=== PATIENT | male | born 1950 | race Two or more races ===

== ENCOUNTER 2020-02-24 00:57 | Emergency (ER) | payer MEDICARE, MEDICAID ==
[~2020-02-24] VITALS: Ht 170.2 cm; Wt 68.2 kg
[2020-02-24 04:17] VITALS: BP 133/67
[2020-02-24] MEDS ORDERED: IBUPROFEN 800 MG TABLET PO ONE (04:45)
== END 2020-02-24 05:02 | disposition home or self-care (01) ==
LOC: EMS 00:57
DX: G89.21 Chronic pain due to trauma (principal); R60.0 Localized edema; Z59.0 Homelessness

== ENCOUNTER 2020-07-08 13:42 | Emergency (ER) | payer MEDICARE, MEDICAID ==
[~2020-07-08] VITALS: Ht 162.6 cm; Wt 61.4 kg
[2020-07-08 15:31] LABS: GLUCOSE,POINT OF CARE 62 MG/DL (70-110)
[2020-07-08 16:19] LABS: GLUCOSE,POINT OF CARE 140 MG/DL (70-110)
[2020-07-08 16:33] LABS: BASOPHILS % (AUTO) 0.8 % (0.0-2.0); EOSINOPHILS % (AUTO) 0.5 % (1.0-6.0); HEMATOCRIT 28.1 % (41-53); HEMOGLOBIN 9.2 g/dL (13.5-17.5); LYMPHOCYTES # (AUTO) 0.9 K/uL (1.0-4.8); LYMPHOCYTES % (AUTO) 15.2 % (22.0-44.0); MEAN CORPUSCULAR HEMOGLOBIN 26.2 pg (26.0-34.0); MEAN CORPUSCULAR HGB CONC 32.7 G/dL (31.0-37.0); MEAN CORPUSCULAR VOLUME 80 fL (80-100); MONOCYTES # (AUTO) 0.4 K/uL (0.1-1.0); NEUTROPHILS # (AUTO) 4.2 K/uL (1.8-7.7); NEUTROPHILS % (AUTO) 75.5 % (40.0-70.0); PLATELET COUNT (AUTO) 372 K/uL (150-450); RED BLOOD CELL COUNT(AUTO) 3.51 MIL/uL (4.50-5.90); RED CELL DISTRIBUTION WIDTH 17.1 % (11.5-14.5)
[2020-07-08 16:41] LABS: ANION GAP 9 mmol/L (8-16); CALCIUM, TOTAL 8.4 mg/dL (8.8-10.5); CARBON DIOXIDE 25 mmol/L (22-29); CHLORIDE 109 mmol/L (98-107); CREATININE 0.62 mg/dL (0.60-1.30); GLOMERULAR FILTR. RATE CALC > 60 mL/min (>60); GLUCOSE,RANDOM 147 mg/dL (70-110); POTASSIUM 3.2 mmol/L (3.5-5.1); SODIUM SERUM 143 mmol/L (136-145); UREA NITROGEN, BLOOD 6 mg/dL (7-18)
[2020-07-08 16:55] LABS: ALANINE AMINOTRANSFERASE 22 U/L (12-78); ALBUMIN 2.6 g/dL (3.4-5.0); ALKALINE PHOSPHATASE 101 U/L (46-116); ASPARTATE AMINOTRANSFERASE 28 U/L (15-37); BILIRUBIN,TOTAL 0.5 mg/dL (0.1-1.0); TOTAL PROTEIN, SERUM 6.8 g/dL (6.4-8.2)
[2020-07-08] MEDS ORDERED: THIAMINE 100 MG TABLET PO ONE (17:00)
[2020-07-08] MEDS ORDERED: ChlordiazePOXIDE HCL 25 MG CAPSULE PO ONE (17:00)
[2020-07-08] MEDS ORDERED: POTASSIUM CHLORIDE 10% 40 MEQ/30 ML LIQUID UDCUP PO ONE (17:00)
[2020-07-08] MEDS ORDERED: MAGNESIUM CHLORIDE 64 MG ER TABLET PO ONE (17:00)
[2020-07-08 20:31] VITALS: BP 116/74
== END 2020-07-08 20:47 | disposition home or self-care (01) ==
LOC: EMS 13:42
DX: S82.141A Displaced bicondylar fracture of right tibia, initial encounter for closed fracture (principal); S82.401A Unspecified fracture of shaft of right fibula, initial encounter for closed fracture; F10.129 Alcohol abuse with intoxication, unspecified; W05.0XXA Fall from non-moving wheelchair, initial encounter; Y93.89 Activity, other specified; Y92.89 Other specified places as the place of occurrence of the external cause; Y99.8 Other external cause status; Y90.0 Blood alcohol level of less than 20 mg/100 ml
CPT/HCPCS: 29515; 36415; 73590; 73600; 80053; 82962; 85025; 99284; G0480

== ENCOUNTER 2020-07-19 18:53 | Emergency (ER) | payer MEDICARE, MEDICAID ==
[~2020-07-19] VITALS: Ht 170.2 cm; Wt 62.7 kg
[2020-07-19 21:04] VITALS: BP 129/79
== END 2020-07-19 22:35 | disposition left against medical advice (07) ==
LOC: EMS 18:55
DX: F10.129 Alcohol abuse with intoxication, unspecified (principal); Z53.21 Procedure and treatment not carried out due to patient leaving prior to being seen by health care provider

== ENCOUNTER 2020-07-30 21:33 | Emergency (ER) | payer MEDICARE, MEDICAID ==
[~2020-07-30] VITALS: Ht 170.2 cm; Wt 59.1 kg
[2020-07-31 06:05] VITALS: BP 138/83
== END 2020-07-31 06:57 | disposition home or self-care (01) ==
LOC: EMS 21:40
DX: F10.129 Alcohol abuse with intoxication, unspecified (principal); Z59.0 Homelessness
CPT/HCPCS: 99283; Z7502

== ENCOUNTER 2020-08-03 16:34 | Emergency (ER) | payer MEDICARE, MEDICAID ==
[~2020-08-03] VITALS: Ht 170.2 cm; Wt 59.1 kg
[2020-08-03] MEDS ORDERED: ACETAMINOPHEN 500 MG TABLET PO ONE (22:30)
[2020-08-03 22:57] VITALS: BP 135/80
== END 2020-08-03 23:46 | disposition home or self-care (01) ==
LOC: EMS 16:34
DX: Z76.5 Malingerer [conscious simulation] (principal); F10.20 Alcohol dependence, uncomplicated

== ENCOUNTER 2020-08-13 22:22 | Emergency (ER) | payer MEDICARE, MEDICAID ==
[~2020-08-13] VITALS: Ht 170.2 cm; Wt 59.1 kg
[2020-08-13 22:41] VITALS: BP 119/67
[2020-08-13] MEDS ORDERED: ACETAMINOPHEN 500 MG TABLET PO ONE (23:30)
== END 2020-08-14 01:15 | disposition home or self-care (01) ==
LOC: EMS 22:22
DX: M79.604 Pain in right leg (principal); Z59.0 Homelessness

== ENCOUNTER 2020-08-25 18:59 | Emergency (ER) | payer MEDICARE, MEDICAID ==
[~2020-08-25] VITALS: Ht 165.1 cm; Wt 61.4 kg
[2020-08-25] MEDS ORDERED: KETOROLAC TROMETHAMINE 30 MG/ML VIAL IM ONE (22:45)
[2020-08-26 01:45] VITALS: BP 134/88
== END 2020-08-26 01:58 | disposition home or self-care (01) ==
LOC: EMS 19:01
DX: M25.512 Pain in left shoulder (principal); Z59.0 Homelessness; Z76.5 Malingerer [conscious simulation]
CPT/HCPCS: 73030; 96372; 99283; J1885

== ENCOUNTER 2020-11-09 10:06 | Emergency (ER) | payer MEDICARE, MEDICAID ==
[~2020-11-09] VITALS: Ht 170.2 cm; Wt 61.4 kg
[2020-11-09] MEDS ORDERED: ACETAMINOPHEN 500 MG TABLET PO ONE (10:30)
[2020-11-09 10:43] VITALS: BP 135/82
== END 2020-11-09 10:50 | disposition home or self-care (01) ==
LOC: EMS 10:06
DX: G89.29 Other chronic pain (principal); M79.604 Pain in right leg
CPT/HCPCS: 99282; 99283

== ENCOUNTER 2020-12-04 15:27 | Emergency (ER) | payer MEDICARE, MEDICAID ==
[~2020-12-04] VITALS: Ht 172.7 cm; Wt 70.5 kg
[2020-12-04] MEDS ORDERED: ACETAMINOPHEN 500 MG TABLET PO ONE (18:30)
[2020-12-04 19:19] LABS: EOSINOPHILS % (AUTO) 0.6 % (1.0-6.0); HEMATOCRIT 25.2 % (41-53); HEMOGLOBIN 7.6 g/dL (13.5-17.5); LYMPHOCYTES # (AUTO) 1.5 K/uL (1.0-4.8); MEAN CORPUSCULAR HEMOGLOBIN 19.9 pg (26.0-34.0); MEAN CORPUSCULAR VOLUME 66 fL (80-100); MONOCYTES # (AUTO) 0.5 K/uL (0.1-1.0); MONOCYTES % (AUTO) 9.3 % (2.0-9.0); NEUTROPHILS # (AUTO) 2.9 K/uL (1.8-7.7); NEUTROPHILS % (AUTO) 59.1 % (40.0-70.0); PLATELET COUNT (AUTO) 325 K/uL (150-450); RED BLOOD CELL COUNT(AUTO) 3.81 MIL/uL (4.50-5.90); RED CELL DISTRIBUTION WIDTH 22.8 % (11.5-14.5)
[2020-12-04 19:39] LABS: ALANINE AMINOTRANSFERASE 25 U/L (12-78); ALBUMIN 2.7 g/dL (3.4-5.0); ALKALINE PHOSPHATASE 110 U/L (46-116); ANION GAP 10 mmol/L (8-16); ASPARTATE AMINOTRANSFERASE 23 U/L (15-37); BILIRUBIN,TOTAL 0.2 mg/dL (0.1-1.0); CALCIUM, TOTAL 8.4 mg/dL (8.8-10.5); CARBON DIOXIDE 26 mmol/L (22-29); CHLORIDE 105 mmol/L (98-107); CREATININE 0.76 mg/dL (0.60-1.30); GLOMERULAR FILTR. RATE CALC > 60 mL/min (>60); GLUCOSE,RANDOM 94 mg/dL (70-110); POTASSIUM 3.7 mmol/L (3.5-5.1); SODIUM SERUM 141 mmol/L (136-145); TOTAL PROTEIN, SERUM 6.9 g/dL (6.4-8.2); UREA NITROGEN, BLOOD 15 mg/dL (7-18)
[2020-12-04 20:30] VITALS: BP 143/85
== END 2020-12-04 21:08 | disposition home or self-care (01) ==
LOC: EMS 15:29
DX: R46.2 Strange and inexplicable behavior (principal); R45.851 Suicidal ideations
CPT/HCPCS: 80053; 85025; 99285; G0480

== ENCOUNTER 2020-12-08 07:03 | Emergency (ER) | payer MEDICARE, MEDICAID ==
[~2020-12-08] VITALS: Ht 172.7 cm; Wt 70.5 kg
[2020-12-08 07:31] VITALS: BP 152/79
== END 2020-12-08 13:18 | disposition home or self-care (01) ==
LOC: EMS 07:12
DX: F10.129 Alcohol abuse with intoxication, unspecified (principal); Y90.9 Presence of alcohol in blood, level not specified
CPT/HCPCS: 99283; Z7502

== ENCOUNTER 2020-12-08 16:49 | Emergency (ER) | payer MEDICARE, MEDICAID ==
[~2020-12-08] VITALS: Ht 162.6 cm; Wt 70.5 kg
[2020-12-08 19:45] VITALS: BP 134/77
== END 2020-12-08 20:00 | disposition home or self-care (01) ==
LOC: EMS 16:51
DX: Z59.0 Homelessness (principal)
CPT/HCPCS: 99281; Z7502

== ENCOUNTER 2021-01-05 16:40 | Emergency (ER) | payer MEDICARE, MEDICAID ==
[~2021-01-05] VITALS: Ht 170.2 cm; Wt 59.1 kg
[2021-01-05 17:20] VITALS: BP 155/78
[2021-01-05 17:42] LABS: COVID AG,FIA SOURCE NASOPHARYNGEAL
== END 2021-01-05 19:28 | disposition home or self-care (01) ==
LOC: EMS 16:42
DX: G89.29 Other chronic pain (principal); M79.604 Pain in right leg; Z20.822 Contact with and (suspected) exposure to COVID-19
CPT/HCPCS: 87426; 99285; Z7502

== ENCOUNTER 2021-01-20 10:00 | Emergency (ER) | payer MEDICARE, MEDICAID ==
[~2021-01-20] VITALS: Ht 165.1 cm; Wt 75.0 kg
[2021-01-20 10:40] VITALS: BP 138/81
[2021-01-20] MEDS ORDERED: IBUPROFEN 600 MG TABLET PO ONE (11:15)
== END 2021-01-20 11:37 | disposition home or self-care (01) ==
LOC: EMS 10:00
DX: G89.29 Other chronic pain (principal); M79.604 Pain in right leg; M79.605 Pain in left leg
CPT/HCPCS: 99283

== ENCOUNTER 2021-01-30 14:09 | Emergency (ER) | payer MEDICARE, MEDICAID ==
[~2021-01-30] VITALS: Ht 167.6 cm; Wt 70.5 kg
[2021-01-30 16:24] LABS: COVID AG,FIA SOURCE NASOPHARYNGEAL
[2021-01-30 16:36] VITALS: BP 143/93
[2021-01-30 17:01] LABS: AMPHET/METH SCREEN,URINE NEGATIVE (NEGATIVE); BARBITURATE SCREEN, URINE NEGATIVE (NEGATIVE); BENZODIAZEPINES SCREEN,URINE NEGATIVE (NEGATIVE); CANNABINOID SCREEN,URINE NEGATIVE (NEGATIVE); COCAINE SCREEN,URINE NEGATIVE (NEGATIVE); METHADONE SCREEN, URINE NEGATIVE (NEGATIVE); OPIATE SCREEN,URINE POSITIVE (NEGATIVE); PHENCYCLIDINE SCREEN,URINE NEGATIVE (NEGATIVE)
== END 2021-01-30 17:16 | disposition home or self-care (01) ==
LOC: EMS 14:09
DX: R46.1 Bizarre personal appearance (principal); Z20.822 Contact with and (suspected) exposure to COVID-19; Z79.899 Other long term (current) drug therapy
CPT/HCPCS: 87426; 99285

== ENCOUNTER 2021-03-07 09:29 | Emergency (ER) | payer MEDICARE, MEDICAID ==
[~2021-03-07] VITALS: Ht 167.6 cm; Wt 68.2 kg
[2021-03-07 10:03] VITALS: BP 132/86
== END 2021-03-07 14:26 | disposition home or self-care (01) ==
LOC: EMS 09:36
DX: F25.9 Schizoaffective disorder, unspecified (principal); F10.129 Alcohol abuse with intoxication, unspecified
CPT/HCPCS: 99285; Z7502

== ENCOUNTER 2021-04-18 22:06 | Emergency (ER) | payer MEDICARE, MEDICAID ==
[~2021-04-18] VITALS: Ht 167.6 cm; Wt 68.2 kg
[2021-04-18 22:07] VITALS: BP 119/81
== END 2021-04-19 04:15 | disposition home or self-care (01) ==
LOC: EMS 22:10
DX: M79.604 Pain in right leg (principal); M79.605 Pain in left leg; Z76.5 Malingerer [conscious simulation]
CPT/HCPCS: 99281; 99283

== ENCOUNTER 2021-05-31 02:11 | Emergency (ER) | payer MEDICARE, MEDICAID ==
[~2021-05-31] VITALS: Ht 170.2 cm; Wt 72.7 kg
[2021-05-31 02:21] VITALS: BP 144/88
== END 2021-05-31 02:50 | disposition home or self-care (01) ==
LOC: EMS 02:12
DX: Z00.00 Encounter for general adult medical examination without abnormal findings (principal); Z59.0 Homelessness
CPT/HCPCS: 99283; Z7502

== ENCOUNTER 2021-05-31 09:15 | Emergency (ER) | payer MEDICARE, MEDICAID ==
[~2021-05-31] VITALS: Ht 170.2 cm; Wt 69.1 kg
[2021-05-31] MEDS ORDERED: ACETAMINOPHEN 500 MG TABLET PO ONE (10:00)
[2021-05-31 10:25] VITALS: BP 158/84
== END 2021-05-31 10:26 | disposition home or self-care (01) ==
LOC: EMS 09:17
DX: G89.29 Other chronic pain (principal); M79.606 Pain in leg, unspecified; Z59.0 Homelessness
CPT/HCPCS: 99283

== ENCOUNTER 2021-07-31 02:17 | Emergency (ER) | payer MEDICARE, MEDICAID ==
[~2021-07-31] VITALS: Ht 170.2 cm; Wt 69.1 kg
[2021-07-31 02:53] VITALS: BP 140/90
== END 2021-07-31 06:02 | disposition home or self-care (01) ==
LOC: EMS 02:18
DX: Z04.89 Encounter for examination and observation for other specified reasons (principal); Z59.00 Homelessness unspecified
CPT/HCPCS: 99283; Z7502